=== PATIENT | female | born 1955 | race Hispanic/Latino ===

== ENCOUNTER 2016-07-07 13:24 | Outpatient (CLI) | payer BC ==
--- NOTE | 2016-07-07 15:53 | Mammography Report ---
BILATERAL DIGITAL SCREENING MAMMOGRAM with CAD: 07/07/16 13:24:00 CLINICAL: Routine screening. COMPARISON: 07/07/15 FINDINGS: There are bilateral scattered areas of fibroglandular density.No mass, architectural distortion or suspicious calcifications. IMPRESSION: No mammographic evidence of malignancy. BI-RADS CATEGORY: 1 -- Negative RECOMMENDATION: Routine mammographic screening in one year. COMMENT: Patient follow-up letters are generated by our [employer] application.
== END 2016-07-07 13:25 | disposition home or self-care (01) ==
LOC: SPVWC 13:24
PROVIDERS: ATTEND Obstetrics & Gynecology
DX: Z12.31 Encounter for screening mammogram for malignant neoplasm of breast (principal)
CPT/HCPCS: 77067; G0202

== ENCOUNTER 2017-07-11 11:42 | Outpatient (CLI) | payer BC ==
--- NOTE | 2017-07-11 15:36 | Mammography Report ---
BILATERAL DIGITAL SCREENING MAMMOGRAM with CAD: 07/11/17 11:42:00 CLINICAL: Routine screening. COMPARISON:07/07/16 FINDINGS: There are bilateral scattered areas of fibroglandular density. No mass, architectural distortion or suspicious calcifications. IMPRESSION: No mammographic evidence of malignancy. BI-RADS CATEGORY: 1 - - Negative RECOMMENDATION: Routine mammographic screening in one year. COMMENT: Patient follow-up letters are generated by our [employer] application.
== END 2017-07-11 11:43 | disposition home or self-care (01) ==
LOC: SPVWC 11:42
PROVIDERS: ATTEND Obstetrics & Gynecology
DX: Z12.31 Encounter for screening mammogram for malignant neoplasm of breast (principal)
CPT/HCPCS: 77067

== ENCOUNTER 2018-07-12 14:03 | Outpatient (CLI) | payer BC ==
--- NOTE | 2018-07-12 15:37 | Mammography Report ---
BILATERAL DIGITAL SCREENING MAMMOGRAM with CAD: 07/12/18 14:03:00 CLINICAL: Routine screening. COMPARISON:07/11/17 FINDINGS: The breasts are almost entirely fatty. No mass, architectural distortion or suspicious calcifications. IMPRESSION: No mammographic evidence of malignancy. BI-RADS CATEGORY: 1 - - Negative RECOMMENDATION: Routine mammographic screening in one year. COMMENT: Patient follow-up letters are generated by our [employer] application.
--- NOTE | 2018-07-12 15:38 | Mammography Report ---
BONE DEXA:07/12/18 14:03:00 CLINICAL: Postmenopausal. No comparison. TECHNIQUE: Two site bone DEXA performed on an Hologic scanner. FINDINGS: The average BMD of the lumbar spine L2-L4 is 1.145g/cm squared with a T-score of -0.4 and a Z-score of +1.6. The L1 vertebra was excluded as an outlier. The average BMD of the left hip is 0.910g/cm squared with a T-score of -0.8 and a Z-score of +0.2. IMPRESSION: 1. WHO classification: Normal with average fracture risk based on lumbar spine measurements. 2. WHO classification: Osteopenia with increased fracture risk based on left hip measurements. RECOMMENDATION: Clinical correlation and routine screening. DEFINITIONS: BMD = Bone Mineral Density T-score = BMD related to mean peak bone mass of young adult (mean expressed in Standard Deviation) Z-score = Age matched BMD expressed in SD World Health Organization (WHO) Diagnostic Criteria Normal T-score > -1 SD Osteopenia T-score between -1 and -2.4 SD Osteoporosis T-score -2.5 SD or below NOTE: BMD is not the only risk factor for fracture. One should also consider factors such as the patient's age, risk of falling, previous osteoporotic fracture, family history of osteoporotic fractures, current smoker, and low body weight. Z-scores are not calculated if >80 years of age.
== END 2018-07-12 14:04 | disposition home or self-care (01) ==
LOC: SPVWC 14:03
PROVIDERS: ATTEND Obstetrics & Gynecology
DX: Z12.31 Encounter for screening mammogram for malignant neoplasm of breast (principal); Z13.820 Encounter for screening for osteoporosis; M85.88 Other specified disorders of bone density and structure, other site
CPT/HCPCS: 77067; 77080

== ENCOUNTER 2019-09-05 09:41 | Outpatient (CLI) | payer BC ==
--- NOTE | 2019-09-05 11:11 | Ultrasound Report ---
ULTRASOUND GUIDED RIGHT BREAST CYST ASPIRATION INDICATION: Right breast mass. COMPARISON: 08/14/2019. FINDINGS: Written, informed consent was obtained from the patient. A preliminary ultrasound of the right breast demonstrated a cystic appearing lesion at the site of the previously described abnormality without a distinct suspicious solid component. The procedure was still indicated at that time. The anticipated needle entry site was marked, prepped and draped in the usual sterile fashion. A timeout was perform ed confirming the patient's name, date of and the procedure to be performed. The soft tissues at the anticipated needle entry site were anesthetized with 1% lidocaine. A 20-gauge needle was advanced into the lesion using ultrasound guidance. The lesion immediately collapsed and approximately half a cc of clear fluid was aspirated and discarded. No residual suspicious solid comp onent was identified. Given these findings, a biopsy was not performed at this site and a clip was no t placed. The patient tolerated the procedure well without immediate complications. A sterile dressin g was applied at the site. IMPRESSION: Technically successful ultrasound-guided aspiration of a right breast cyst as above. No sonographic e vidence of a suspicious solid right breast lesion warranting biopsy at this time. Continued annual sc reening mammography is recommended. Signer Name: James Chung MD Signed: 09/05/2019 11:07 AM Workstation Name: [id number]
== END 2019-09-05 09:42 | disposition home or self-care (01) ==
LOC: SPVWC 09:41
PROVIDERS: ATTEND Obstetrics & Gynecology
DX: N60.01 Solitary cyst of right breast (principal); R92.8 Other abnormal and inconclusive findings on diagnostic imaging of breast; R92.2 Inconclusive mammogram
CPT/HCPCS: 76942

== ENCOUNTER 2020-07-22 13:27 | Outpatient (CLI) | payer BC ==
--- NOTE | 2020-07-22 16:05 | Mammography Report ---
DIGITAL SCREENING MAMMOGRAM WITH CAD, 07/22/2020 CLINICAL INFORMATION / INDICATION: Routine screening mammography. TECHNIQUE: Digital bilateral 2D mammography was obtained in the craniocaudal and mediolateral obliqu e projections. This examination was interpreted with the benefit of Computer-Aided Detection analysis . COMPARISON: 07/19/2019, 07/12/2018, 07/11/2017 FINDINGS: Breast Density: The breasts are almost entirely fatty. No dominant mass, suspicious calcifications, or architectural distortion in either breast. IMPRESSION: No mammographic evidence of malignancy. Follow up recommendation: Routine yearly BI-RADS Category 1: Negative. A "normal" or negative report should not discourage follow up or biopsy of a clinically significant f inding. A written summary of these findings will be mailed to the patient. The patient will be entered into a mammography reporting system which will generate a reminder letter for the patient's next appointmen t at the appropriate interval. The [employer] recommends yearly mammograms starting at age 40 and continuing as l chelly as a woman is in good health. Breast MRI is recommended for women with an approximate 20-25% or greater lifetime risk of breast cancer, including women with a strong family history of breast or ova yobani cancer or who have been treated for Hodgkin's disease. Signer Name: Lady Wiseman MD Signed: 07/22/2020 3:57 PM Workstation Name: [id number]
== END 2020-07-22 13:28 | disposition home or self-care (01) ==
LOC: SPVWC 13:27
PROVIDERS: ATTEND Obstetrics & Gynecology
DX: Z12.31 Encounter for screening mammogram for malignant neoplasm of breast (principal)
CPT/HCPCS: 77067